=== PATIENT | male | born 1940 | race Hispanic/Latino ===

== ENCOUNTER 2016-04-30 09:19 | Emergency (ER) | payer MEDICARE, OTHER ==
[2016-04-30] MEDS ORDERED: EPINEPHrine 1 MG/10 ML SYR IV ONE (09:32)
[2016-04-30] MEDS ORDERED: DEXTROSE 50% 50 ML ONE (09:32)
== END 2016-04-30 11:28 | disposition expired ==
LOC: ER 09:19
CPT/HCPCS: 82947; 92950; 96374; 96375